=== PATIENT | male | born 1945 | race Caucasian/White ===

== ENCOUNTER → 2024-07-13 | Outpatient (CLI) | payer MEDICARE, SELFPAY ==
[2024-07-13 10:49] LABS: CREATININE FINGERSTICK 2.2 mg/dL (0.70-1.30)
[2024-07-13 10:54] VITALS: BP 136/79; PULSE 71; RESP 16; O2SAT 97
[2024-07-13 11:03] VITALS: BP 128/71; PULSE 70; RESP 16; O2SAT 98
[2024-07-13 11:17] VITALS: BP 141/65; PULSE 70; RESP 16; O2SAT 95
[2024-07-13 11:32] VITALS: BP 121/68; PULSE 70; RESP 16; O2SAT 96
[2024-07-13 11:45] VITALS: BP 127/66; PULSE 70; RESP 16; O2SAT 94
[2024-07-13 12:06] VITALS: BP 125/69; PULSE 62; RESP 16; O2SAT 95
== END | disposition home or self-care (01) ==
PROVIDERS: PCP Family Medicine; Referring Provider Student in an Organized Health Care Education/Training Program; Visit Provider Student in an Organized Health Care Education/Training Program
DX: C61 Malignant neoplasm of prostate (principal)
CPT/HCPCS: 72197; 77014; 77290; A9575